=== PATIENT | male | born 1935 | race African-American/Black ===

== ENCOUNTER 2017-05-10 16:36 | Emergency (ER) | payer OTHER ==
[~2017-05-10] VITALS: Ht 175.3 cm; Wt 81.7 kg
[~2017-05-10 16:36] MED LIST: AMLODIPINE BESY10 MG PO; TAMSULOSIN HCL0.4 M1 PO
[2017-05-10] MEDS ORDERED: NORCO 5-325 TA1 EACH PO (18:58)
[2017-05-10 19:40] VITALS: BP 138/89
== END 2017-05-10 19:43 | disposition home or self-care (01) ==
LOC: ER 16:36
DX: S63.501A Unspecified sprain of right wrist, initial encounter (principal); S13.9XXA Sprain of joints and ligaments of unspecified parts of neck, initial encounter; S39.81XA Other specified injuries of abdomen, initial encounter; S29.8XXA Other specified injuries of thorax, initial encounter; M25.562 Pain in left knee; M25.512 Pain in left shoulder; V49.40XA Driver injured in collision with unspecified motor vehicles in traffic accident, initial encounter; Y93.I9 Activity, other involving external motion; Y92.89 Other specified places as the place of occurrence of the external cause; Y99.8 Other external cause status

== ENCOUNTER 2018-06-14 02:29 | Inpatient (IN) | payer OTHER ==
[2018-06-14] VITALS (7 sets, daily range): BP systolic 113–169; BP diastolic 56–97
[~2018-06-14] VITALS: Ht 175.3 cm; Wt 81.9 kg
--- NOTE | ~2018-06-14 | EKG ---
[address] [address] ELECTROCARDIOGRAM REPORT Name: MAIK MCCURDY Room #: 363-P [facility] IN M.R.#: [id number] Admission: 06/14/18 Attend Phys: Leonid French MD Discharge: 06/15/18 Date of : 37 Report #: [id number] THIS REPORT FOR: //name// [facility] ED Test Date: 2018-06-14 Test Time: 04:08:27 Pat Name: MAIK MCCURDY Department: Room: 363 Gender: M [employer]: Ashley OWENS : 1935 Requested By: Andreina Vera Order Number: [id number] MD: Albert Deal Measurements Intervals [place] Rate: 76 P: 48 ID: [id number] QRS: -12 QRSD: 84 T: 98 QT: 372 QTc: 419 Interpretive Statements Sinus rhythm Borderline T wave abnormalities Minimal ST elevation, anterior leads Compared to ECG 06/05/2012 16:49:31 ST (T wave) deviation now present T-wave abnormality still present Electronically Signed On 06-17-2018 17:06:58 CDT by Albert Deal [email or web address] <ELECTRONICALLY SIGNED> By: Albert Deal MD 06/17/18 1706 [id number] Albert Deal MD /EPI
[~2018-06-14 02:29] MED LIST changes: +MEDROLDOSEPACK PO; +MOBIC15 MG PO; +NORCO 5-325 TA1 EACH PO; +TRAMADOL 50 MG50 MG PO
[2018-06-14 03:38] LABS: ABSOLUTE NEUTROPHILS 2.3 thou/uL (1.4-8.2); BASOPHILS 0.3 % (0.0-2.0); EOSINOPHILS 1.7 % (0.0-3.0); HEMATOCRIT 22.7 % (42.0-52.0); HEMOGLOBIN 7.3 gm/dL (14.0-18.0); LYMPHOCYTES 43.6 % (24.0-44.0); MCHC 32.3 g/dL (28.0-37.0); MCV 83.4 fL (80.0-100.0); MONOCYTES 7.4 % (1.0-8.0); PLATELET COUNT 152 thou/uL (150-400); RBC 2.72 mil/uL (4.50-6.00); RDW 13.5 % (10.5-14.5); WBC 4.9 thou/uL (4.0-11.0)
[2018-06-14 03:48] LABS: ALBUMIN 1.4 g/dL (3.4-5.0); ANION GAP 11 mmol/L (7-16); APTT 33.4 Seconds (24.5-32.8); BUN 11 mg/dL (7-18); CHLORIDE 122 mmol/L (98-107); CO2 14 mmol/L (21-32); CREATININE 0.6 mg/dL (0.7-1.3); GLUCOSE 92 mg/dL (74-106); INR 1.3; LIPASE 165 U/L (73-393); PROTIME 13.4 Seconds (9.3-11.4); SGOT 16 U/L (15-37); SGPT 10 U/L (30-65); SODIUM 147 mmol/L (136-145); TOTAL BILIRUBIN 0.1 mg/dL (<0.1-1.0)
[2018-06-14 03:53] LABS: DIRECT BILIRUBIN < 0.1 mg/dL (<0.1-0.3)
[2018-06-14 03:55] LABS: CALCIUM < 5.0 mg/dL (8.5-10.1); POTASSIUM 1.9 mmol/L (3.5-5.1)
[2018-06-14 04:16] LABS: HEMATOCRIT 31.4 % (42.0-52.0); MCH 28.1 pg (26.0-34.0); MCHC 33.9 g/dL (28.0-37.0); MCV 82.7 fL (80.0-100.0); RBC 3.8 mil/uL (4.50-6.00); RDW 13.6 % (10.5-14.5); WBC 7.5 thou/uL (4.0-11.0)
[2018-06-14 04:17] LABS: HEMOGLOBIN 10.7 gm/dL (14.0-18.0)
[2018-06-14 04:22] LABS: CREATININE 1.2 mg/dL (0.7-1.3)
[2018-06-14 04:28] LABS: CALCIUM 8.1 mg/dL (8.5-10.1); POTASSIUM 4.6 mmol/L (3.5-5.1)
[2018-06-14 09:13] LABS: % SATURATION 18 % (20-39); IRON 19 ug/dL (65-175); TIBC 103 ug/dL (250-450)
[2018-06-14 09:28] LABS: FOLIC ACID 9.4 ng/mL (8.6-58.9)
[2018-06-14 13:08] LABS: GLYCOHEMOGLOBIN (HGB A1C) 5.8 % (4.8-5.6)
[2018-06-14 15:21] LABS: HEMATOCRIT 34.6 % (42.0-52.0); HEMOGLOBIN 11.5 gm/dL (14.0-18.0)
[2018-06-14 15:24] LABS: CREATININE 1.3 mg/dL (0.7-1.3); POTASSIUM 4.6 mmol/L (3.5-5.1)
[2018-06-15 03:05] VITALS: BP 128/74
[2018-06-15 06:20] LABS: ABSOLUTE NEUTROPHILS 3.1 thou/uL (1.4-8.2); BASOPHILS 0.4 % (0.0-2.0); EOSINOPHILS 1.9 % (0.0-3.0); HEMATOCRIT 28.9 % (42.0-52.0); HEMOGLOBIN 9.9 gm/dL (14.0-18.0); LYMPHOCYTES 36.4 % (24.0-44.0); MCHC 34.2 g/dL (28.0-37.0); MCV 81.9 fL (80.0-100.0); MONOCYTES 6.5 % (1.0-8.0); PLATELET COUNT 183 thou/uL (150-400); POLYS 54.8 % (36.0-66.0); RBC 3.53 mil/uL (4.50-6.00); RDW 13.9 % (10.5-14.5); WBC 5.6 thou/uL (4.0-11.0)
[2018-06-15 06:32] LABS: CALCIUM 8.5 mg/dL (8.5-10.1); CREATININE 1.2 mg/dL (0.7-1.3); MAGNESIUM 1.9 mg/dL (1.8-2.4); POTASSIUM 3.7 mmol/L (3.5-5.1)
[2018-06-15 07:51] VITALS: BP 116/62
[2018-06-15] MEDS ORDERED: ULTRAM 50MG TAB50 MG PO (10:43)
[2018-06-15 11:08] VITALS: BP 116/62
== END 2018-06-15 11:51 | disposition home or self-care (01) | DRG 377 ==
LOC: ER 02:29 → EROBS 06:18 → 3W 06:18
PROVIDERS: Emergency Medicine; Nurse Practitioner
PROC: 0DJD8ZZ Inspection of Lower Intestinal Tract, Via Natural or Artificial Opening Endoscopic (ICD-10-PCS; principal; 2018-06-14)
DX: K57.31 Diverticulosis of large intestine without perforation or abscess with bleeding (principal); E43 Unspecified severe protein-calorie malnutrition; E78.00 Pure hypercholesterolemia, unspecified; I10 Essential (primary) hypertension; E87.8 Other disorders of electrolyte and fluid balance, not elsewhere classified; M54.10 Radiculopathy, site unspecified; K59.09 Other constipation; D50.9 Iron deficiency anemia, unspecified; E78.5 Hyperlipidemia, unspecified; K21.9 Gastro-esophageal reflux disease without esophagitis; Z79.1 Long term (current) use of non-steroidal anti-inflammatories (NSAID); Z85.46 Personal history of malignant neoplasm of prostate; Z92.3 Personal history of irradiation; Z79.899 Other long term (current) drug therapy
CPT/HCPCS: 10879; 62110; 62900; 70005

== ENCOUNTER → 2020-05-17 | Outpatient (CLI) | payer OTHER ==
[~2020-05-17] MED LIST changes: +ULTRAM 50MG TAB50 MG PO
== END ==
LOC: MRI 09:30
PROVIDERS: ATTEND Psychiatry & Neurology Neuromuscular Medicine
DX: M47.23 Other spondylosis with radiculopathy, cervicothoracic region (principal); M50.11 Cervical disc disorder with radiculopathy, high cervical region; M48.02 Spinal stenosis, cervical region; M50.13 Cervical disc disorder with radiculopathy, cervicothoracic region; M47.22 Other spondylosis with radiculopathy, cervical region